=== PATIENT | male | born 1990 | race Caucasian/White ===

== ENCOUNTER 2019-10-01 12:07 | Emergency (ER) | payer SELFPAY ==
[~2019-10-01] VITALS: Ht 188 cm; Wt 113.4 kg
--- NOTE | 2019-10-01 13:11 | NUR ---
MANAGER DIESEL: PT AMBULATORY WITH STEADY GAIT TO ROOM AT TH IS TIME.
--- NOTE | 2019-10-01 13:15 | NUR ---
PT IN HOSPITAL GOWN. ERP IN NOW TO SEE PT.
[2019-10-01] MEDS ORDERED: ONDANSETRON 2MG/ML, 2ML ONE (13:26)
[2019-10-01] MEDS ORDERED: MORPHINE SULFATE 4 MG/ML, 1ML ONE ×3 (13:26→15:32)
[2019-10-01] MEDS ORDERED: SODIUM CHLORIDE FLUSH 10ML SYR IVF ONE (13:30)
[2019-10-01] MEDS ORDERED: ONDANSETRON 2MG/ML, 2ML IVPush ONE (13:30)
[2019-10-01] MEDS: MORPHINE SULFATE 4 MG/ML, 1ML IVPush PRN ×2 (13:36→15:34)
[2019-10-01 13:50] LABS: BASOPHILS % (AUTO) 0 % (0-1); EOSINOPHILS # (AUTO) 0.02 x10^3/uL (0-0.4); EOSINOPHILS % (AUTO) 0 % (1-7); LYMPHOCYTES # (AUTO) 1.96 x10^3/uL (1-3.4); LYMPHOCYTES % (AUTO) 12 % (22-44); MD NO; MEAN CORPUSCULAR HEMOGLOBIN 30.3 pg (27.5-34.5); MEAN CORPUSCULAR HGB CONC 33.5 g/dL (33.2-36.2); MEAN CORPUSCULAR VOLUME 90.7 fL (81-97); MEAN PLATELET VOLUME 8.5 fL (7.4-10.4); MONOCYTES # (AUTO) 0.55 x10^3/uL (0.2-0.8); MONOCYTES % (AUTO) 4 % (2-9); NEUTROPHILS # (AUTO) 13.37 x10^3/uL (1.8-6.8); NEUTROPHILS % (AUTO) 84 % (42-75); PLATELET COUNT 354 x10^3/uL (130-400); RED BLOOD COUNT 5.44 x10^6/uL (4.38-5.82); RED CELL DISTRIBUTION WIDTH 12.7 % (9.4-14.8)
[2019-10-01 13:54] LABS: ALANINE AMINOTRANSFERASE 53 U/L (12-78); ANION GAP 11 mmol/L (5-15); CHLORIDE 114 mmol/L (98-107); CREATININE 1.19 mg/dL (0.7-1.3)
[2019-10-01] MEDS ORDERED: HYDROmorphone 1 MG/ML, 1ML INJ ONE (13:55)
[2019-10-01 13:57] LABS: ALKALINE PHOSPHATASE 88 U/L (45-117); BILIRUBIN,TOTAL 0.9 mg/dL (0.2-1.0)
[2019-10-01] MEDS ORDERED: HYDROmorphone 2 MG/ML, 1ML IVPush ONE (14:00)
[2019-10-01] MEDS ORDERED: DIPHENHYDRAMINE 50 MG/ML, 1ML ONE (14:07)
[2019-10-01] MEDS ORDERED: KETOROLAC 30 MG/1 ML ONE (14:07)
--- NOTE | 2019-10-01 14:19 | NUR ---
BREAK RN: PT MEDICATED PER ORDERS. PT TOLERATING PAIN LEVELS BETTER THAN BEFORE. ABLE TO LIE STILL IN BED. BLADDER SCAN: 264ML. PT STILL UNABLE TO URINATE DUE TO PAIN. CT NOTIFIED OF PT READINESS FOR IMAGING. DENIES ANY FURTHER NEEDS OR CONCERNS. CALL LIGHT IN REACH.
[2019-10-01] MEDS ORDERED: KETOROLAC 30 MG/1 ML IVPush ONE (14:30)
[2019-10-01] MEDS ORDERED: DIPHENHYDRAMINE 50 MG/ML, 1ML IVPush ONE (14:30)
--- NOTE | 2019-10-01 14:36 | NUR ---
BREAK RN: PT IN CT AT THIS TIME.
--- NOTE | 2019-10-01 15:06 | NUR ---
PT STATED HE HAS BEEN UNABLE TO VOID. ERP OKAYED A STRAIGHT CATH. SAMPLE OBTAINED, WALKED TO LAB. WILL CONTINUE TO MONITOR.
[2019-10-01 15:18] LABS: MICROSCOPIC AUTO
--- NOTE | 2019-10-01 15:54 | NUR ---
PT DESATING TO 72% AFTER MORPHINE ADMIN. PT PLACED ON 2L O2 PER N/C. WILL CONTINUE TO MONITOR.
[2019-10-01 16:10] VITALS: BP 135/64
--- NOTE | 2019-10-01 16:30 | NUR ---
PT RESTING CALMLY IN BED WITH EYES CLOSED. PT EASILY AROUSED WITH VOICE. PT O2 TURNED DOWN TO 1L PT SATING 98% ON 2L WHILE SLEEPING. WILL CONTINUE TO MONITOR.
--- NOTE | 2019-10-01 16:55 | NUR ---
pt o2 off, sating 94% on RA. pt up for recheck.
--- NOTE | 2019-10-01 17:30 | NUR ---
PT RESTING CALMLY IN BED DOZING OFF AND ON. ERP TO SPEAK WITH PT. NO STATED NEEDS BY PT. WILL CONTINUE TO MONITOR. PT REMAINS ON RA.
== END 2019-10-01 18:25 | disposition home or self-care (01) ==
LOC: EDBD 12:07 → ED 14:18
DX: R10.31 Right lower quadrant pain (principal); R10.32 Left lower quadrant pain; Z90.49 Acquired absence of other specified parts of digestive tract
CPT/HCPCS: 36415; 74176; 80053; 81001; 83690; 85025; 96374; 96375; 96376; 99285; J1170; J1200; J1885; J2270; J2405

== ENCOUNTER 2019-10-02 08:34 | Emergency (ER) | payer OTHER ==
[~2019-10-02] VITALS: Ht 188 cm; Wt 130.0 kg
[2019-10-02] MEDS ORDERED: ASPIRIN 81 MG TABLET CHEW PO ONE (09:00)
[2019-10-02] MEDS ORDERED: ONDANSETRON 2MG/ML, 2ML IVPush ONE (09:00)
[2019-10-02] MEDS ORDERED: SODIUM CHLORIDE 0.9% 1,000ML IVBOLUS ONE (09:00)
[2019-10-02] MEDS ORDERED: ASPIRIN 81 MG TABLET CHEW ONE (09:07)
[2019-10-02] MEDS ORDERED: ONDANSETRON 2MG/ML, 2ML ONE (09:07)
[2019-10-02] MEDS ORDERED: MORPHINE SULFATE 4 MG/ML, 1ML ONE ×2 (09:08→09:53)
[2019-10-02] MEDS: MORPHINE SULFATE 4 MG/ML, 1ML IVPush PRN ×2 (09:10→09:58)
[2019-10-02 09:33] LABS: BASOPHILS # (AUTO) 0.07 x10^3/uL (0-0.1); BASOPHILS % (AUTO) 1 % (0-1); EOSINOPHILS # (AUTO) 0.02 x10^3/uL (0-0.4); EOSINOPHILS % (AUTO) 0 % (1-7); LYMPHOCYTES # (AUTO) 1.76 x10^3/uL (1-3.4); LYMPHOCYTES % (AUTO) 11 % (22-44); MD NO; MEAN CORPUSCULAR HEMOGLOBIN 30.1 pg (27.5-34.5); MEAN CORPUSCULAR VOLUME 91.2 fL (81-97); MONOCYTES # (AUTO) 0.65 x10^3/uL (0.2-0.8); MONOCYTES % (AUTO) 4 % (2-9); NEUTROPHILS # (AUTO) 13.15 x10^3/uL (1.8-6.8); NEUTROPHILS % (AUTO) 84 % (42-75); PLATELET COUNT 340 x10^3/uL (130-400); RED BLOOD COUNT 5.15 x10^6/uL (4.38-5.82); RED CELL DISTRIBUTION WIDTH 12.7 % (9.4-14.8)
[2019-10-02 09:45] LABS: ALANINE AMINOTRANSFERASE 74 U/L (12-78); ALBUMIN 4.8 g/dL (3.4-5.0); ANION GAP 8 mmol/L (5-15); CALCIUM 9.9 mg/dL (8.5-10.1); CHLORIDE 113 mmol/L (98-107); CREATININE 1.14 mg/dL (0.7-1.3)
[2019-10-02 09:50] LABS: ALKALINE PHOSPHATASE 94 U/L (45-117); BILIRUBIN,TOTAL 1.2 mg/dL (0.2-1.0); TOTAL PROTEIN 7.7 g/dL (6.4-8.2); TROPONIN I < 0.015 ng/mL (0.000-0.045)
[2019-10-02] MEDS ORDERED: KETOROLAC 30 MG/1 ML ONE (09:53)
[2019-10-02] MEDS ORDERED: KETOROLAC 30 MG/1 ML IVPush ONE (10:00)
[2019-10-02] MEDS ORDERED: METHOCARBAMOL 1,000 MG in DEXTROSE 5% 100 ML IV ONE (10:00)
--- NOTE | 2019-10-02 10:15 | NUR ---
MEDICATED FOR CONTINUED PAIN AT 10/10 PER EMAR STRAIGHT CATH OBTAINED SENT TO LAB TO CT SCAN AFTER ABOVE INTERVENTIONS
[2019-10-02 10:30] LABS: MICROSCOPIC INDICATED
[2019-10-02] MEDS ORDERED: OMNIPAQUE 350 MG/ML, 75ML BOTTLE ONE (10:34)
--- NOTE | 2019-10-02 10:50 | NUR ---
ALL TESTING REVIEWED-PLACED UP RECHECK WITH REASSESSMENT MACK REPORTS PAIN IMPROVED TO 6/10
[2019-10-02 10:56] VITALS: BP 115/80
== END 2019-10-02 11:50 | disposition home or self-care (01) ==
LOC: ED 10:51
DX: S39.012A Strain of muscle, fascia and tendon of lower back, initial encounter (principal); R06.02 Shortness of breath; R07.89 Other chest pain; R11.2 Nausea with vomiting, unspecified; F41.1 Generalized anxiety disorder; Z90.49 Acquired absence of other specified parts of digestive tract; X58.XXXA Exposure to other specified factors, initial encounter; Y93.89 Activity, other specified; Y92.89 Other specified places as the place of occurrence of the external cause; Y99.8 Other external cause status
CPT/HCPCS: 36415; 71045; 71275; 80053; 81001; 84484; 85025; 93005; 96361; 96365; 96375; 96376; 99285; J1885; J2270; J2405; J2800; J7030; Q9967

== ENCOUNTER 2019-12-03 22:05 | Emergency (ER) | payer OTHER ==
[~2019-12-03] VITALS: Ht 188 cm; Wt 125.0 kg
--- NOTE | 2019-12-03 22:26 | NUR ---
C-collar applied. Pt reports significant tingling in BLLE. T-spine tenderness noted. C-collar applied. MD colbert
[2019-12-03] MEDS ORDERED: ZIPRASIDONE 20 MG INJ IM ONE ×2 (23:00→23:22)
[2019-12-03] MEDS ORDERED: HYDROmorphone 1 MG/ML, 1ML INJ ONE (23:43)
[2019-12-03] MEDS: HYDROmorphone 2 MG/ML, 1ML IVPush PRN (23:47)
[2019-12-04] MEDS ORDERED: HYDROmorphone 1 MG/ML, 1ML INJ ONE (01:53)
[2019-12-04] MEDS ORDERED: ONDANSETRON 2MG/ML, 2ML ONE (02:08)
[2019-12-04] MEDS: HYDROmorphone 2 MG/ML, 1ML IVPush PRN (02:22)
[2019-12-04] MEDS ORDERED: ONDANSETRON 2MG/ML, 2ML IVPush ONE (02:30)
--- NOTE | 2019-12-04 02:30 | NUR ---
Pt crying out, states no relief from pain medicine. Provider aware
--- NOTE | 2019-12-04 03:00 | NUR ---
Pt continues to cry out in pain. Moving around on stretcher. Requesting more pain medicine. Pt aware that we recently medicated him, see eMAR for additional details. Provider aware
[2019-12-04] MEDS ORDERED: CYCLOBENZAPRINE 10 MG TABLET ONE (03:34)
[2019-12-04] MEDS ORDERED: OXYcodone/APAP 5/325MG TABLET ONE (03:34)
--- NOTE | 2019-12-04 03:35 | NUR ---
Pt ambulating around room. Continues to report 10/10 pain. Able to ambulate independently, steady gait noted. Reports (+) CSM in all extremities and slight improvement to tingling in all extremities. (+) DP/radial pulses noted
--- NOTE | 2019-12-04 03:49 | NUR ---
D/c, f/u care and meds discussed with pt. Pt verbalizes understanding. Pt states he will f/u with neurosurgery tomorrow and return to ED with worsening sx. Ambulating independently, steady gait.
[2019-12-04 03:53] VITALS: BP 115/66
[2019-12-04] MEDS ORDERED: OXYcodone/APAP 5/325MG TABLET PO ONE (04:00)
[2019-12-04] MEDS ORDERED: CYCLOBENZAPRINE 10 MG TABLET PO ONE (04:00)
== END 2019-12-04 03:56 | disposition home or self-care (01) ==
LOC: ED 22:35
DX: M51.26 Other intervertebral disc displacement, lumbar region (principal); M51.24 Other intervertebral disc displacement, thoracic region; R11.10 Vomiting, unspecified; Z90.89 Acquired absence of other organs; Z90.49 Acquired absence of other specified parts of digestive tract
CPT/HCPCS: 72146; 72148; 96372; 96374; 96375; 96376; 99285; J1170; J2405; J3486

== ENCOUNTER 2020-02-10 02:20 | Emergency (ER) | payer MEDICAID, OTHER ==
[~2020-02-10] VITALS: Ht 188 cm; Wt 103.6 kg
[2020-02-10] MEDS ORDERED: KETOROLAC 30 MG/1 ML IVPush ONE (03:00)
[2020-02-10] MEDS ORDERED: ACETAMINOPHEN 500 MG TABLET PO ONE (03:00)
[2020-02-10] MEDS ORDERED: DIAZEPAM 5 MG/ML, 2ML IVPush ONE (03:00)
--- NOTE | 2020-02-10 03:08 | NUR ---
pt wheelchair to room. on cr monitor.
--- NOTE | 2020-02-10 03:14 | NUR ---
pt assesed, unable to sit still r/t pain per pt. flank and lower back pain bilaterally. orders received.
[2020-02-10] MEDS ORDERED: KETOROLAC 30 MG/1 ML ONE (03:15)
[2020-02-10] MEDS ORDERED: ACETAMINOPHEN 500 MG TABLET ONE (03:16)
[2020-02-10] MEDS ORDERED: DIAZEPAM 5 MG/ML, 2ML ONE (03:16)
[2020-02-10 03:31] VITALS: BP 134/80
--- NOTE | 2020-02-10 03:32 | NUR ---
iv started to right wrist x1. pt tolerated well. medication given per MD order, and pt states relief of pain at this time. on cr monitor, and lying in bed, side rails up x2 and call light within reach.
--- NOTE | 2020-02-10 03:43 | NUR ---
pt called RN to bedside. states he is in the exact same amount of pain as before the medications. MD advised. unable to give more meds at this time. pt in position of comfort, sitting in gurney. whimpers of pain, no tears, and calmly speaks when he needs to. MD aware.
[2020-02-10] MEDS ORDERED: LIDODERM 5% PATCH TD ONE ×2 (04:08→04:30)
== END 2020-02-10 04:50 | disposition home or self-care (01) ==
LOC: ED 04:00
DX: S39.012A Strain of muscle, fascia and tendon of lower back, initial encounter (principal); Z90.89 Acquired absence of other organs; Z90.49 Acquired absence of other specified parts of digestive tract; X58.XXXA Exposure to other specified factors, initial encounter; Y93.89 Activity, other specified; Y92.89 Other specified places as the place of occurrence of the external cause; Y99.8 Other external cause status
CPT/HCPCS: 96374; 96375; 99284; J1885; J3360